=== PATIENT | female | born 1950 | race Caucasian/White ===

== ENCOUNTER 2016-12-05 11:07 | Emergency (ER) | payer OTHER ==
[~2016-12-05] VITALS: Ht 175.3 cm; Wt 86.1 kg
[~2016-12-05 11:07] MED LIST: MULTTAB58 PO; VITAMIN C PO; VITAMIN D PO; VITAMIN E PO
[2016-12-05 11:11] VITALS: Ht 175.3 cm; Wt 86.1 kg
[2016-12-05] MEDS ORDERED: VNTHFA/IN INH (12:17)
--- NOTE | 2016-12-05 12:18 | EMERGENCY ROOM VISIT NOTE ---
History Report prepared by Deepti: Orville Mcnulty Under the Supervision of: Dr. Everton Maxwell M.D. First contact with patient: 11:54 Chief Complaint: CHEST PAIN Stated Complaint: CHEST PAIN, COUGH, DIZZY Nursing Triage Summary: Patient c/o left chest pain into back, worsens with cough. SOB Cough for a month, taking antibiotics and prednisone Had chest pain last month and threw up once. History of Present Illness The patient is a 66 year old white female with no significant past medical hx who presents to the ED with a cc of worsening chest pain beginning last month. Positive cough, shortness of breath, nausea, vomiting. Negative urinary symptoms , bowel movement problems, calf pain, trauma, recent travel, sick contacts. She notes that the chest pain is worse on the left side, and is worsened with coughing. Coughing makes the pain sharp. She says that the pain is otherwise dull. The patient says that she has had a cough for 3-4 weeks. The patient has been on Amoxicillin and Prednisone with no relief. She is on an inhaler. Her breathing is worsened with laying flat. Has family hx of heart disease. Source of History: patient Onset: Last month Position: chest (worse on left) Quality: sharp (with cough), dull Timing: worsening Associated Symptoms: + cough, + SOB, + nausea, + vomiting, No urinary symptoms Note: Denies bowel movement problems, calf pain. Review of Systems See HPI for pertinent positives and negatives. A total of ten systems were reviewed and were otherwise negative. Past Medical & Surgical Medical Problems: (1) No significant past medical history Family History Heart disease Social History Smoking Status: Former Smoker Alcohol Use: none Drug Use: none Marital Status: Housing Status: lives with family Occupation Status: retired Current/Historical Medications Scheduled Albuterol Hfa (Ventolin Hfa), 2-4 PUFFS INH Q6H Allergies Coded Allergies: No Known Allergies (Unverified , 12/05/16) Physical Exam Vital Signs Date Time Temp Pulse Resp B/P (MAP) Pulse Ox O2 Delivery O2 Flow Rate FiO2 12/05/16 14:22 73 18 148/81 95 Room Air 12/05/16 13:03 76 16 136/88 97 Room Air 12/05/16 12:56 97 Room Air 12/05/16 12:04 79 12/05/16 11:19 91 Room Air 12/05/16 11:11 37.0 87 22 131/83 91 Room Air Physical Exam GENERAL: Awake, alert, well-appearing, NAD HENT: Normocephalic, atraumatic. EYES: Sclera non-icteric. RESPIRATORY: CTAB, no rhonchi, wheezing, crackles CARDIAC: RRR, no MRG ABDOMEN: Soft, NTND, BS+ MSK: No chest wall TTP, no LE edema. No calf pain, no ext swelling, no erythema or calor to LE. NEURO: GCS 15, CN 2-12 intact, moves all 4s on command SKIN: No rash or jaundice noted. Medical Decision & Procedures ER Provider Diagnostic Interpretation: X-ray: Per my interpretation, radiologist review. CHEST 2 VIEWS ROUTINE CLINICAL HISTORY: Atypical chest pain COMPARISON STUDY: Chest x-ray dated 02/12/2012, chest CT dated 02/24/2015 FINDINGS: The cardiac and mediastinal contours are normal. There is no evidence of focal pulmonary consolidation. There is no evidence of failure. No pleural effusions are visualized.[ On the lateral view, there is a anterior retrosternal opacity. 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 Electronically signed by: Tripp Marrero M.D. 12/05/2016 1:59 PM Dictated Date/Time: 12/05/2016 1:57 PM Laboratory Results 12/05/16 12:40 Red Blood Count 4.82, Mean Corpuscular Volume 84.6, Mean Corpuscular Hemoglobin 28.8, Mean Corpuscular Hemoglobin Concent 34.1, Mean Platelet Volume 8.8, Neutrophils (%) (Auto) 73.6, Lymphocytes (%) (Auto) 14.6, Monocytes (%) (Auto) 9.6, Eosinophils (%) (Auto) 1.8, Basophils (%) (Auto) 0.1, Neutrophils # (Auto) 6.88, Lymphocytes # (Auto) 1.37, Monocytes # (Auto) 0.90, Eosinophils # (Auto) 0.17, Basophils # (Auto) 0.01 12/05/16 12:40 Test 12/05/16 12:40 12/05/16 14:09 White Blood Count 9.36 K/uL (4.8-10.8) Red Blood Count 4.82 M/uL (4.2-5.4) Hemoglobin 13.9 g/dL (12.0-16.0) Hematocrit 40.8 % (37-47) Mean Corpuscular Volume 84.6 fL (80-100) Mean Corpuscular Hemoglobin 28.8 pg (25-34) Mean Corpuscular Hemoglobin Concent 34.1 g/dl (32-36) Platelet Count 266 K/uL (130-400) Mean Platelet Volume 8.8 fL (7.4-10.4) Neutrophils (%) (Auto) 73.6 % Lymphocytes (%) (Auto) 14.6 % Monocytes (%) (Auto) 9.6 % Eosinophils (%) (Auto) 1.8 % Basophils (%) (Auto) 0.1 % Neutrophils # (Auto) 6.88 K/uL (1.4-6.5) Lymphocytes # (Auto) 1.37 K/uL (1.2-3.4) Monocytes # (Auto) 0.90 K/uL (0.11-0.59) Eosinophils # (Auto) 0.17 K/uL (0-0.5) Basophils # (Auto) 0.01 K/uL (0-0.2) RDW Standard Deviation 41.6 fL (36.4-46.3) RDW Coefficient of Variation 13.5 % (11.5-14.5) Immature Granulocyte % (Auto) 0.3 % Immature Granulocyte # (Auto) 0.03 K/uL (0.00-0.02) Prothrombin Time 10.4 SECONDS (9.0-12.0) Prothromb Time International Ratio 1.0 (0.9-1.1) Activated Partial Thromboplast Time 24.0 SECONDS (21.0-31.0) Partial Thromboplastin Ratio 0.9 Anion Gap 6.0 mmol/L (3-11) Est Creatinine Clear Calc Drug Dose 63.7 ml/min Estimated GFR () 67.9 Estimated GFR (Non- 58.6 BUN/Creatinine Ratio 22.4 (10-20) Calcium Level 9.3 mg/dl (8.5-10.1) Total Bilirubin 0.6 mg/dl (0.2-1) Direct Bilirubin 0.1 mg/dl (0-0.2) Aspartate Amino Transf (AST/SGOT) 12 U/L (15-37) Alanine Aminotransferase (ALT/SGPT) 21 U/L (12-78) Alkaline Phosphatase 117 U/L (45-117) Total Protein 6.8 gm/dl (6.4-8.2) Albumin 3.6 gm/dl (3.4-5.0) Lipase 281 U/L (73-393) Troponin I < 0.015 ng/ml (0-0.045) Laboratory results reviewed by me Medications Administered Medications (Trade) Dose Ordered Sig/Danya Route Start Time Stop Time Status Last Admin Dose Admin Ibuprofen (Advil Tab) 400 mg NOW STAT PO 12/05/16 12:22 12/05/16 12:24 DC 12/05/16 12:58 400 MG Acetaminophen (Tylenol Tab) 1,000 mg NOW STAT PO 12/05/16 12:22 12/05/16 12:24 DC 12/05/16 12:59 1,000 MG Azithromycin (Zithromax Tab) 500 mg NOW ONCE PO 12/05/16 12:30 12/05/16 12:31 DC 12/05/16 13:00 500 MG Sodium Chloride 500 ml @ 500 mls/hr Q1H STAT IV 12/05/16 12:22 12/05/16 13:21 DC 12/05/16 12:22 500 MLS/HR Menthol (Nice Gerardo) 1 gerardo NOW STAT PO 12/05/16 13:00 12/05/16 13:01 DC 12/05/16 13:08 1 GERARDO Guaifenesin (Mucinex Contr Rel Tab) 1,200 mg ONE STAT PO 12/05/16 13:00 12/05/16 13:01 DC 12/05/16 13:12 1,200 MG Ondansetron HCl (Zofran Inj) 4 mg NOW STAT IV 12/05/16 14:07 12/05/16 14:08 DC 12/05/16 14:21 4 MG ECG Indication: chest pain Rate (beats per minute): 96 Rhythm: normal sinus Findings: other (normal intervals, normal axis, T-wave flattening in lateral leads, no sts changes or TWI) ED Course 1158: The patient was evaluated in room B4B. A complete history and physical exam was performed. 1400: I reevaluated the patient and she does not feel any better . 1452: I reevaluated the patient and she is resting. Discussed results and discharge instructions: she verbalized understanding and agreement. The patient is ready for discharge. Medical Decision The patient is a 66 year old white female with no significant past medical hx who presents to the ED with a cc of persistent chest pain beginning last month. Positive cough, shortness of breath, nausea, vomiting. Negative urinary symptoms , bowel movement problems, calf pain, trauma, recent travel, sick contacts. Differential diagnosis: Etiologies such as cardiac ischemia, aortic dissection, pulmonary embolism, pneumonia, pneumothorax, musculoskeletal, infections, pericarditis, myocarditis , esophageal rupture, gastrointestinal, as well as others were entertained. Patient was seen and evaluated at the bedside. Patient has had persistent symptoms for greater than a month. Patient has had persistent cough. Patient was given supportive treatment as well as a chest x-ray EKG and troponins. Patient had negative troponin 2. Patient was likely ACS given a fairly normal EKG with 2 negative troponins specially in light of patient's current symptoms. Patient WELLS neg for PE so this less likely. Given abx given persistent cough of 1 month and given age. Patient's pain was mildly improved. Patient was instructed follow-up, discharge, and return precautions. Patient agreeable plan of care and patient was safely discharged home. Medication Reconcilliation Current Medication List: was personally reviewed by me Blood Pressure Screening Patient's blood pressure: Normal blood pressure Impression Primary Impression: URI (upper respiratory infection) Additional Impression: Chest pain Scribe Attestation The scribe's documentation has been prepared under my direction and personally reviewed by me in its entirety. I confirm that the note above accurately reflects all work, treatment, procedures, and medical decision making performed by me. Departure Information Dispostion Home / Self-Care Prescriptions Azithromycin (Zithromax) 250 Mg Tab 250 MG PO DAILY, #4 TAB Prov: Everton Maxwell M.D. 12/05/16 Referrals No Doctor, Assigned (PCP) Patient Instructions ED Upper Resp Infec Abx Tx, My [facility] Additional Instructions Please return to the emergency department if you have worsening or recurrent symptoms not amenable to at-home treatment. Please call for a follow-up appointment with her primary care physician. Please take your medications as prescribed. If you have other concerns and/or complaints please feel free to also call your primary care physician's office or return the ED for further evaluation, management, and treatment. You may take 600 mg Ibuprofen every 6 hours as needed for pain with food for no more than 2 consecutive days. You may take tylenol 1000mg every 6 hours as needed for pain. You may take motrin and tylenol separately or at the same time. Take tramadol for breakthrough pain. Take antibiotics as prescribed. You may use lozenges for cough. You may also use mucinex to promote expectoration. Honey /lemon tea may help w/ cough. You have been examined and treated today on an emergency basis only. This is not a substitute for, or an effort to provide, complete comprehensive medical care. It is impossible to recognize and treat all injuries or illnesses in a single emergency department visit. It is therefore important that you follow up closely with [facility]. Call as soon as possible for an appointment. Thank you for your time and consideration. I look forward to speaking with you again soon. Please don't hesitate to call us if you have any questions. Problem Qualifiers Primary Impression: URI (upper respiratory infection) URI type: unspecified viral URI Qualified Codes: J06.9 - Acute upper respiratory infection, unspecified; B97.89 - Other viral agents as the cause of diseases classified elsewhere Additional Impression: Chest pain Chest pain type: unspecified Qualified Codes: R07.9 - Chest pain, unspecified
[2016-12-05] MEDS ORDERED: ACETAMINOPHEN 500 MG TAB PO STA (12:22)
[2016-12-05] MEDS ORDERED: SODIUM CHLORIDE 0.9% 500ML 500 ML IV STA (12:22)
[2016-12-05] MEDS ORDERED: IBUPROFEN 200 MG TAB PO STA (12:22)
[2016-12-05] MEDS ORDERED: AZITHROMYCIN 250 MG TAB PO ONE (12:30)
[2016-12-05 12:56] VITALS: O2SAT 97
[2016-12-05] MEDS ORDERED: GUAIFENESIN 600 MG TABCR PO STA (13:00)
[2016-12-05] MEDS ORDERED: COUGH DROP (SUGAR FREE) LOZ 24 LOZ/1 BOX PO STA (13:00)
[2016-12-05 13:13] LABS: BASO % 0.1 %; BASO ABS # 0.01 K/uL (0-0.2); COMPLETE YES; EOS % 1.8 %; HEMATOCRIT 40.8 % (37-47); IG% 0.3 %; LYMPH % 14.6 %; LYMPH ABS # 1.37 K/uL (1.2-3.4); MEAN CELL VOLUME 84.6 fL (80-100); MEAN CORPUSCULAR HEMOGLOBIN 28.8 pg (25-34); MEAN CORPUSCULAR HGB CONC 34.1 g/dl (32-36); MEAN PLATELET VOLUME 8.8 fL (7.4-10.4); MONO % 9.6 %; NEUT % 73.6 %; PLATELET COUNT 266 K/uL (130-400); RED BLOOD COUNT 4.82 M/uL (4.2-5.4); WHITE BLOOD COUNT 9.36 K/uL (4.8-10.8)
[2016-12-05 13:31] LABS: PARTIAL THROMBOPLASTIN RATIO 0.9; PROTHROMBIN TIME (PATIENT) 10.4 SECONDS (9.0-12.0)
[2016-12-05 13:36] LABS: ALT/SGPT 21 U/L (12-78); AST/SGOT 12 U/L (15-37); BLOOD UREA NITROGEN 22 mg/dl (7-18); BUN/CREATININE RATIO 22.4 (10-20); CALCIUM 9.3 mg/dl (8.5-10.1); CARBON DIOXIDE 29 mmol/L (21-32); CHLORIDE 106 mmol/L (98-107); CREATININE 0.99 mg/dl (0.60-1.20); GLUCOSE 84 mg/dl (70-99); POTASSIUM 4.3 mmol/L (3.5-5.1); SODIUM 141 mmol/L (136-145)
[2016-12-05 13:41] LABS: ALKALINE PHOSPHATASE 117 U/L (45-117)
--- NOTE | 2016-12-05 14:00 | DIAGNOSTIC IMAGING REPORT ---
CHEST 2 VIEWS ROUTINE CLINICAL HISTORY: Atypical chest pain COMPARISON STUDY: Chest x-ray dated 02/12/2012, chest CT dated 02/24/2015 FINDINGS: The cardiac and mediastinal contours are normal. There is no evidence of focal pulmonary consolidation. There is no evidence of failure. No pleural effusions are visualized.[ On the lateral view, there is a anterior retrosternal opacity. 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 Electronically signed by: Tripp Marrero M.D. 12/05/2016 1:59 PM Dictated Date/Time: 12/05/2016 1:57 PM
[2016-12-05] MEDS ORDERED: ONDANSETRON INJ 2 MG/ML 2 ML VIAL IV STA (14:07)
[2016-12-05] MEDS ORDERED: AZIT250T PO (14:57)
[2016-12-05 15:51] VITALS: BP 142/78; PULSE 62; TEMP 37; O2SAT 95
== END 2016-12-05 15:52 | disposition home or self-care (01) ==
LOC: C.EDB 11:08
DX: J06.9 Acute upper respiratory infection, unspecified (principal); R07.89 Other chest pain; R42 Dizziness and giddiness; R05 Cough